=== PATIENT | female | born 1950 | race Caucasian/White ===

== ENCOUNTER → 2020-02-01 | Outpatient (CLI) | payer MEDICARE, OTHER | END | disposition home or self-care (01) | LOC: LAB SHORT 11:10 → PLD 11:10 | DX: L97.329 Non-pressure chronic ulcer of left ankle with unspecified severity (principal) | CPT/HCPCS: 88305; 88312 ==

== ENCOUNTER → 2020-06-13 | Outpatient (CLI) | payer MEDICARE, SELFPAY ==
[2020-06-13 11:31] LABS: Source, Urine Clean Catch
[2020-06-13 13:53] LABS: Appearance, Urine Clear (Clear); Bilirubin, Urine Neg (Neg); Blood, Urine 4+ (Neg); Color, Urine Yellow (P-Yellow); Glucose Qualitative, Urine Neg (Neg); Ketones, Urine Neg (Neg); Leukocyte Esterase, Urine Neg (Neg); Nitrite, Urine Neg (Neg); Protein, Urine Neg (Neg); Urobilinogen, Urine NORM (Normal)
[2020-06-13 14:42] LABS: Bacteria Not Seen /hpf; Squamous Epithelial Cells Not Seen /hpf (Few); White Blood Cells, Urine 0-2 /hpf (0-5)
== END ==
LOC: LAB SHORT 11:24 → LAB 11:24
PROVIDERS: Obstetrics & Gynecology
DX: R33.9 Retention of urine, unspecified (principal)
CPT/HCPCS: 81001

== ENCOUNTER → 2020-08-12 | Outpatient (CLI) | payer MEDICARE, SELFPAY ==
[2020-08-12 11:11] LABS: Source, Urine Clean Catch
[2020-08-12 11:25] LABS: Bacteria Not Seen /hpf; Mucus Light (0-Heavy); Squamous Epithelial Cells Few /hpf (Few); White Blood Cells, Urine Not Seen /hpf (0-5)
== END | disposition home or self-care (01) ==
LOC: LAB SHORT 11:08 → LAB EV 11:08
PROVIDERS: Family Medicine
DX: R31.9 Hematuria, unspecified (principal)
CPT/HCPCS: 81015

== ENCOUNTER → 2020-11-20 | Outpatient (CLI) | payer MEDICARE | END | disposition home or self-care (01) | LOC: LAB SHORT 15:21 | DX: R31.9 Hematuria, unspecified (principal) | CPT/HCPCS: 87086 ==

== ENCOUNTER → 2021-04-21 | Outpatient (CLI) | payer MEDICARE ==
[2021-04-21 12:18] LABS: Source, Urine Clean Catch
[2021-04-21 13:19] LABS: Bacteria Mod /hpf; Squamous Epithelial Cells Few /hpf (Few); White Blood Cells, Urine 25-50 /hpf (0-5)
== END | disposition home or self-care (01) ==
LOC: LAB SHORT 09:30 → LAB 09:30
PROVIDERS: Family Medicine
DX: E11.9 Type 2 diabetes mellitus without complications (principal)
CPT/HCPCS: 81015; 82043; 83036

== ENCOUNTER → 2023-03-11 | Outpatient (CLI) | payer MEDICARE | END | disposition home or self-care (01) | LOC: LAB SHORT 09:50 → LAB 09:50 | DX: E11.65 Type 2 diabetes mellitus with hyperglycemia (principal); R30.0 Dysuria | CPT/HCPCS: 82043; 87086 ==

== ENCOUNTER → 2023-10-28 | Outpatient (CLI) | payer SELFPAY | LOC: LAB 17:50 → LAB SHORT 17:50 | DX: E11.9 Type 2 diabetes mellitus without complications (principal); I10 Essential (primary) hypertension | CPT/HCPCS: 82043 ==